=== PATIENT | male | born 1980 | race Hispanic/Latino ===

== ENCOUNTER 2019-02-19 23:18 | Emergency (ER) | payer SELFPAY ==
[~2019-02-19] VITALS: Ht 175.3 cm; Wt 100.8 kg
[~2019-02-19 23:18] MED LIST: CIPROFLOXACN500 MG PO; DILAUDID 2MG2 MG/TA1 PO
[2019-02-20 00:39] LABS: HEMATOCRIT 44.2 % (39.0-50.0); HEMOGLOBIN 14.8 g/dl (14.0-18.0); IMMATURE GRANULOCYTES 0.6 % (0.0-5.0); MEAN CELL VOLUME 87.9 fL CALC (80.0-100.0); MEAN CORPUSCULAR HGB 29.4 pG CALC (26.0-32.0); MEAN CORPUSCULAR HGB CONC 33.5 g/L CALC (32.0-36.0); NEUT# 4.74 thou/uL (1.82-7.42); RED BLOOD COUNT 5.03 mill/uL (4.70-6.10); RED CELL DISTRI WIDTH 12.6 % (11.5-15.5)
[2019-02-20 00:50] LABS: ALBUMIN 4.8 g/dL (3.2-5.0); ALKALINE PHOSPHATASE 103 u/l (38-126); ANION GAP 14 (6-22 (CALC)); BILIRUBIN, TOTAL 0.5 mg/dL (0.0-1.4); BUN 13 mg/dL (9-20); BUN/CREATININE RATIO 17 (12-20 (CALC)); CARBON DIOXIDE 28 mmol/l (22-30); CHLORIDE 103 mmol/l (95-108); CREATININE 0.8 mg/dL (0.7-1.3); GFR > 60 ML/MIN (>=60 (CALC)); GFR FOR AFR.AMER. > 60 ML/MIN (>=60 (CALC)); POTASSIUM 3.4 mmol/l (3.5-5.1); SGOT/AST 47 u/l (17-59); SODIUM 142 mmol/l (137-146)
[2019-02-20 01:02] LABS: MYOGLOBIN 27 ng/mL (0 - 121)
[2019-02-20 01:47] LABS: URINE BILIRUBIN - DIPSTICK NEGATIVE (NEGATIVE); URINE BLOOD DIPSTICK NEGATIVE (NEGATIVE); URINE COLOR YELLOW; URINE GLUCOSE - DIPSTICK NEGATIVE (NEGATIVE); URINE KETONE NEGATIVE (NEGATIVE); URINE LEUK ESTERASE NEGATIVE (NEGATIVE); URINE NITRITE - DIPSTICK NEGATIVE (Negative); URINE PROTEIN - DIPSTICK NEGATIVE (NEG-TRACE); URINE SPECIFIC GRAVITY 1.015; URINE UROBILINOGEN - DIPSTICK 0.2 E.U./dL (0.2)
[2019-02-20 01:53] LABS: BARBITURATES NEGATIVE (NEGATIVE); COCAINE NEGATIVE (NEGATIVE); METHADONE NEGATIVE (NEGATIVE); OXCYCODONE NEGATIVE (NEGATIVE); TETRAHYDROCANNABIONOL NEGATIVE (NEGATIVE); TRICYLIC ANTIDEPRESSANTS NEGATIVE (NEGATIVE)
[2019-02-20] MEDS ORDERED: FLEXERIL PO (05:34)
[2019-02-20] MEDS ORDERED: LORTAB 1010 MG PO (05:34)
[2019-02-20 05:46] VITALS: BP 135/79
== END 2019-02-20 05:46 | disposition home or self-care (01) | DRG 918 ==
LOC: ED 23:18
PROVIDERS: Emergency Medicine
DX: T63.311A Toxic effect of venom of black widow spider, accidental (unintentional), initial encounter (principal); M79.10 Myalgia, unspecified site

== ENCOUNTER 2019-09-30 11:18 | Emergency (ER) | payer SELFPAY ==
[~2019-09-30] VITALS: Ht 175.3 cm; Wt 100.0 kg
[~2019-09-30 11:18] MED LIST changes: +FLEXERIL PO; +LORTAB 1010 MG PO
[2019-09-30] MEDS ORDERED: TAM75CAP PO (13:04)
[2019-09-30 13:19] VITALS: BP 129/74
== END 2019-09-30 13:19 | disposition home or self-care (01) | DRG 195 ==
LOC: ED 11:18
DX: J10.1 Influenza due to other identified influenza virus with other respiratory manifestations (principal)

== ENCOUNTER 2023-02-23 10:35 | Emergency (ER) | payer SELFPAY ==
[~2023-02-23] VITALS: Ht 175.3 cm; Wt 81.0 kg
[~2023-02-23 10:35] MED LIST changes: +TAM75CAP PO
[2023-02-23 10:46] VITALS: BP 146/94
[2023-02-23 11:00] VITALS: BP 135/96
[2023-02-23 11:17] VITALS: BP 126/94
[2023-02-23 11:18] VITALS: BP 126/89
[2023-02-23] MEDS ORDERED: BACTRIM DS1 TAB PO (11:23)
[2023-02-23 11:30] VITALS: BP 119/71
[2023-02-23 11:31] VITALS: BP 119/71
== END 2023-02-23 11:37 | disposition home or self-care (01) | DRG 603 ==
LOC: ED 10:35
DX: L03.221 Cellulitis of neck (principal)